=== PATIENT | female | born 1965 | race Hispanic/Latino ===

== ENCOUNTER 2016-11-16 08:20 | Emergency (ER) | payer MEDICARE ==
[2016-11-16 08:33] VITALS: BP 139/104
[2016-11-16 09:06] LABS: Basophils % (Auto) 1.1 % (0.0-1.8); Eosinophils % (Auto) 2.8 % (0.0-4.3); Hematocrit 40.4 % (30.3-42.9); Hemoglobin 13.5 gm/dl (10.1-14.3); Mean Corpuscular HGB Conc 33 % (30-34); Mean Corpuscular Hemoglobin 30 pg (28-32); Mean Corpuscular Volume 89 fl (79-97); Platelet Count 218 K/mm3 (140-440); Red Blood Count 4.56 M/mm3 (3.65-5.03); Red Cell Distribution Width 13.5 % (13.2-15.2); White Blood Count 5.4 K/mm3 (4.5-11.0)
[2016-11-16 09:37] LABS: Alanine Aminotransferase 15 units/L (7-56); Albumin 3.7 g/dL (3.9-5); Albumin/Globulin Ratio 1.2 %; Alkaline Phosphatase 74 units/L (35-129); Anion Gap 14 mmol/L; Blood Urea Nitrogen 14 mg/dL (7-17); Calcium 8.8 mg/dL (8.4-10.2); Carbon Dioxide 26 mmol/L (22-30); Glucose 97 mg/dL (65-100); Lipase 61 units/L (13-60); Potassium 4.4 mmol/L (3.6-5.0); Sodium 138 mmol/L (137-145); Total Protein 6.7 g/dL (6.3-8.2)
[2016-11-16 10:01] LABS: Bilirubin,Urine NEG (Negative); Blood,Urine NEG (Negative); Ketones,Urine NEG (Negative); Leukocyte Esterase,Urine TR (Negative); Nitrite,Urine NEG (Negative); Protein,Urine <15 mg/dL mg/dL (Negative); RBC,Urine < 1.0 /HPF (0.0-6.0); Urobilinogen,Urine < 2.0 mg/dL (<2.0)
--- NOTE | 2016-11-16 14:17 | Cat Scan Report ---
CT scan of abdomen and pelvis without IV contrast: History: Pain. Findings: Normal lung bases. No pleural pericardial effusion. Normal liver spleen pancreas. Patient status post cordis the rectum and appendectomy. Normal adrenals and kidney parenchyma and bladder. No calculi. No hydronephrosis. No free intraperitoneal air or fluid. Diverticulosis sigmoid colon. Stool in colon. Impression: Diverticulosis sigmoid colon with moderate amount of stool in colon. No bowel distention.
[2016-11-16] MEDS ORDERED: ROCEPHIN IM ONE (16:47)
[2016-11-16] MEDS ORDERED: XYLOCAINE 1% MPF 5 mL INFILTRATI ONE (16:47)
[2016-11-16] MEDS ORDERED: ZITHROMAX PO ONE (16:47)
[2016-11-16] MEDS ORDERED: ZOFRAN ODT PO ONE (16:48)
[2016-11-16] MEDS ORDERED: TORADOL IM ONE (16:48)
--- NOTE | 2016-11-16 16:50 | Emergency Department Report ---
ED Abdominal Pain HPI - General Chief Complaint: Abdominal Pain Stated Complaint: PELVIC PAIN Time Seen by Provider: 11/16/16 13:48 Source: patient Mode of arrival: Ambulatory Limitations: No Limitations - History of Present Illness MD Complaint: abdominal pain (suprapubic) -: Gradual, days(s) Location: suprapubic Radiation: none Migration to: no migration Severity: mild Severity scale (0 -10): 1 Quality: cramping Consistency: intermittent Improves With: nothing Worsens With: nothing Associated Symptoms: denies: nausea, vomiting, diarrhea, fever, chills, constipation, hematemesis, hematochezia, melena, hematuria, anorexia, syncope - Related Data Home Medications Medication Instructions Recorded Confirmed Last Taken Duloxetine HCl [Cymbalta] 60 mg PO DAILY 10/17/15 02/19/16 02/19/16 Levothyroxine [Synthroid] 75 mcg PO QAM 10/17/15 02/19/16 02/19/16 Lisinopril [Zestril TAB] 40 mg PO QDAY 10/17/15 02/19/16 02/19/16 Ziprasidone [Geodon] 60 mg PO DAILY 10/17/15 02/19/16 02/19/16 busPIRone [Buspar] 15 mg PO DAILY 10/17/15 02/19/16 02/19/16 Previous Rx's Medication Instructions Recorded Last Taken Type Famotidine [Pepcid] 20 mg PO QDAY #30 tablet 01/24/16 02/19/16 Rx HYDROcodone/APAP 5-325 [Drifton 1 each PO Q6HR PRN #7 tablet 02/11/16 02/19/16 Rx 5/325] Nitrofurantoin Mower/M-Cryst 100 mg PO Q12HR #10 capsule 02/11/16 02/19/16 Rx [Macrobid CAP] Ondansetron [Zofran Odt] 4 mg PO Q6H #7 tab.rapdis 02/11/16 02/19/16 Rx Famotidine [Pepcid] 20 mg PO BID #20 tablet 02/19/16 Unknown Rx HYDROcodone/APAP 5-325 [Drifton 1 - 2 each PO Q6HR PRN #7 tablet 02/19/16 Unknown Rx 5/325] HYDROcodone/APAP 5-325 [Drifton 1 each PO Q6HR PRN #7 tablet 02/22/16 Unknown Rx 5/325] Ondansetron [Zofran Odt] 4 mg PO Q8HR #14 tab.rapdis 02/22/16 Unknown Rx Famotidine [Pepcid] 40 mg PO QHS #14 tablet 03/18/16 Unknown Rx Doxycycline [Vibramycin CAP] 100 mg PO Q12HR #28 capsule 11/16/16 Unknown Rx Allergies Allergy/AdvReac Type Severity Reaction Status Date / Time codeine Allergy Vomiting Verified 01/15/16 20:07 morphine Allergy Headache Verified 01/15/16 20:07 Penicillins Allergy Nausea Verified 01/15/16 20:07 tramadol Allergy Seizure Verified 01/15/16 20:07 ED Review of Systems ROS: Stated complaint: PELVIC PAIN Other details as noted in HPI Other: GENERAL: No weight change, fatigue, weakness, fever, chills, or night sweats SKIN: No changes in skin or hair, no itching, no rashes, no jaundice HEAD: No trauma, headache, or visual changes EYES: No blurriness, tearing, itching, acute visual loss, conjunctival discoloration, or scleral icterus EARS: No hearing loss, tinnitus, vertigo, or earache NOSE: No rhinorrhea, stuffiness, sneezing, itching, or epistaxis MOUTH: No bleeding gums, hoarseness, sore throat, or swelling CARDIAC: No new murmur, chest pain, palpitations, dyspnea on exertion, orthopnea , PND, or edema RESPIRATORY: No shortness of breath, wheeze, cough, sputum production, hemoptysis, pneumonia, asthma, bronchitis, or emphysema GI: abdominal pain URINARY: No frequency, urgency, polyuria, dysuria, hematuria, or incontinence MUSCULOSKELETAL: No muscle weakness, joint stiffness, decrease in range of motion, redness, swelling, tenderness NEUROLOGIC: No loss of sensation, numbness, tingling, tremors, weakness, paralysis, seizures HEMATOLOGIC: No anemia, easy bruising, bleeding, petechiae, or purpura ENDOCRINE: No hot or cold intolerance, sweating, polyuria, polydipsia or, polyphagia no thyroid problems PSYCHIATRIC: No change in mood, no anxiety, no depression GENITAL: Female: reports some vaginal discharge ED Past Medical Hx - Past Medical History Previous Medical History?: Yes Hx Hypertension: Yes Hx Liver Disease: Yes Hx Headaches / Migraines: Yes Hx Psychiatric Treatment: Yes (substance cocaine abuse, PTSD,depression,bipolar. ) Additional medical history: hypothyroidism. trigeminal neuralgia. hep C went on Tx now no hep c 03/16/2016 states hep C is back. Gastritis, question pancreatitis. pelvic inflammatory disease - Surgical History Past Surgical History?: Yes Hx Cholecystectomy: Yes Hx Appendectomy: Yes Additional Surgical History: rt shoulder surgery. hyst. foot surgery x 3 - Social History Smoking Status: Current Every Day Smoker Substance Use Type: None - Medications Home Medications: Home Medications Medication Instructions Recorded Confirmed Last Taken Type Duloxetine HCl [Cymbalta] 60 mg PO DAILY 10/17/15 02/19/16 02/19/16 History Levothyroxine [Synthroid] 75 mcg PO QAM 10/17/15 02/19/16 02/19/16 History Lisinopril [Zestril TAB] 40 mg PO QDAY 10/17/15 02/19/16 02/19/16 History Ziprasidone [Geodon] 60 mg PO DAILY 10/17/15 02/19/16 02/19/16 History busPIRone [Buspar] 15 mg PO DAILY 10/17/15 02/19/16 02/19/16 History Famotidine [Pepcid] 20 mg PO QDAY #30 tablet 01/24/16 02/19/16 02/19/16 Rx HYDROcodone/APAP 5-325 [Drifton 1 each PO Q6HR PRN #7 tablet 02/11/16 02/19/16 Rx 5/325] Nitrofurantoin Mower/M-Cryst 100 mg PO Q12HR #10 capsule 02/11/16 02/19/16 Rx [Macrobid CAP] Ondansetron [Zofran Odt] 4 mg PO Q6H #7 tab.rapdis 02/11/16 02/19/16 02/19/16 Rx Famotidine [Pepcid] 20 mg PO BID #20 tablet 02/19/16 Unknown Rx HYDROcodone/APAP 5-325 [Drifton 1 - 2 each PO Q6HR PRN #7 tablet 02/19/16 Unknown Rx 5/325] HYDROcodone/APAP 5-325 [Drifton 1 each PO Q6HR PRN #7 tablet 02/22/16 Unknown Rx 5/325] Ondansetron [Zofran Odt] 4 mg PO Q8HR #14 tab.rapdis 02/22/16 Unknown Rx Famotidine [Pepcid] 40 mg PO QHS #14 tablet 03/18/16 Unknown Rx Doxycycline [Vibramycin CAP] 100 mg PO Q12HR #28 capsule 11/16/16 Unknown Rx ED Physical Exam - General Limitations: No Limitations - Other Other exam information: GENERAL: Patient in no acute distress HEAD: Normocephalic, atraumatic EYES: PERRLA, EOM intact, no scleral icterus, no conjunctival hemorrhage, visual neely and acuity wnl, NOSE: No tenderness, discharge, sinus tenderness MOUTH: No erythema, bleeding, exudate HEART: Regular rate and rhythm, no murmur, S1-S2 are auscultated, pulses are symmetric LUNGS: No wheezing, rales, rhonchi, bilateral breath sounds ABDOMEN: Normal bowel sounds, no tenderness, no rebound, no guarding, no masses , no CVA tenderness MUSCULOSKELETAL: Normal joint range of motion, no redness, no swelling, no tenderness NEUROLOGIC: GCS 15, Alert and Oriented x3, Cranial nerves intact, normal sensation, normal strength, normal gait, no cerebellar deficit PSYCHIATRIC: No homicidal or suicidal ideation, no anxiety, no depression, no hallucinations SKIN: Skin is warm and dry, no wounds, no rashes ED Course Vital Signs 11/16/16 11/16/16 08:29 14:31 Temperature 97.5 F L 98.5 F Pulse Rate 107 H Respiratory 20 Rate Blood Pressure 139/104 O2 Sat by Pulse 100 Oximetry ED Medical Decision Making - Lab Data Result diagrams: 11/16/16 08:52 11/16/16 08:52 - Radiology Data Radiology results: report reviewed - Medical Decision Making Patient comfortable. Updated with results. Plan discharge with outpatient follow-up. Patient agrees with plan and will return if symptoms worsen. Critical care attestation.: If time is entered above; I have spent that time in minutes in the direct care of this critically ill patient, excluding procedure time. ED Disposition Clinical Impression: STD exposure Abdominal pain Qualifiers: Abdominal location: unspecified location Qualified Code(s): R10.9 - Unspecified abdominal pain Disposition: - TO HOME OR SELFCARE Is pt being admited?: No Condition: Stable Instructions: Sexually Transmitted Diseases (ED), Abdominal Pain (ED) Prescriptions: Doxycycline [Vibramycin CAP] 100 mg PO Q12HR #28 capsule Referrals: PRIMARY CARE, [Primary Care Provider] - 2-3 Days [facility] [Provider Group] - 2-3 Days Time of Disposition: 16:49
== END 2016-11-16 17:27 | disposition home or self-care (01) ==
LOC: ED 08:20
DX: R10.2 Pelvic and perineal pain (principal); I10 Essential (primary) hypertension; G43.909 Migraine, unspecified, not intractable, without status migrainosus; F31.9 Bipolar disorder, unspecified; F14.10 Cocaine abuse, uncomplicated; F17.210 Nicotine dependence, cigarettes, uncomplicated; E03.9 Hypothyroidism, unspecified; Z20.2 Contact with and (suspected) exposure to infections with a predominantly sexual mode of transmission; Z90.49 Acquired absence of other specified parts of digestive tract; Z88.6 Allergy status to analgesic agent; Z88.0 Allergy status to penicillin
CPT/HCPCS: 36415; 74176; 80053; 81001; 83690; 84484; 85025; 96372; 99284; J0696; J1885; Q0162